=== PATIENT | male | born 1950 | race Two or more races ===

== ENCOUNTER 2016-10-20 13:24 | Emergency (ER) | payer MEDICAID ==
[~2016-10-20] VITALS: Ht 180.3 cm; Wt 87.1 kg
[2016-10-20 14:22] VITALS: BP 147/106
== END 2016-10-20 15:31 | disposition home or self-care (01) ==
LOC: ER 13:30
DX: H61.21 Impacted cerumen, right ear (principal); H60.91 Unspecified otitis externa, right ear
CPT/HCPCS: 69209

== ENCOUNTER 2016-10-29 13:02 | Emergency (ER) | payer MEDICAID ==
[~2016-10-29] VITALS: Ht 180.3 cm; Wt 89.8 kg
[2016-10-29 15:23] VITALS: BP 171/96
[2016-10-29] MEDS ORDERED: LIDOCAINE 1% HCL (LOCAL ANESTH.) INJ 20ML MDV IJ ONE (15:30)
[2016-10-29] MEDS ORDERED: TETANUS-DIPTH-ACEL PERTUSSIS 0.5ML SYRG IM ONE (15:30)
[2016-10-29] MEDS ORDERED: cefTRIAXone SOD 1,000 MG VL IM ONE (15:30)
[2016-10-29] MEDS ORDERED: BACITRACIN TOP OINT 1 UD PKG TOP ONE (15:30)
== END 2016-10-29 16:21 | disposition home or self-care (01) ==
LOC: ER 13:02
DX: S51.811A Laceration without foreign body of right forearm, initial encounter (principal); S50.811A Abrasion of right forearm, initial encounter; Z23 Encounter for immunization; W54.0XXA Bitten by dog, initial encounter; Y93.89 Activity, other specified; Y99.8 Other external cause status; Y92.830 Public park as the place of occurrence of the external cause
CPT/HCPCS: 12002; 90471; 90715; 96372; 99284; J0696; J2001

== ENCOUNTER 2016-11-02 13:09 | Emergency (ER) | payer MEDICAID ==
[~2016-11-02] VITALS: Ht 180.3 cm; Wt 87.5 kg
[2016-11-02 15:23] VITALS: BP 168/105
[2016-11-02] MEDS ORDERED: BACITRACIN TOP OINT 1 UD PKG TOP ONE (15:30)
== END 2016-11-02 15:33 | disposition home or self-care (01) ==
LOC: ER 13:09
DX: S51.811D Laceration without foreign body of right forearm, subsequent encounter (principal); B99.9 Unspecified infectious disease

== ENCOUNTER 2016-11-06 11:09 | Emergency (ER) | payer MEDICAID ==
[~2016-11-06] VITALS: Ht 180.3 cm; Wt 87.5 kg
[2016-11-06 11:30] VITALS: BP 161/100
== END 2016-11-06 13:01 | disposition home or self-care (01) ==
LOC: ER 11:17
DX: S51.811D Laceration without foreign body of right forearm, subsequent encounter (principal); I10 Essential (primary) hypertension